=== PATIENT | female | born 1945 | race Native Hawaiian/Other Pacific Islander ===

== ENCOUNTER 2021-09-10 14:43 | Outpatient (CLI) | payer OTHER ==
[2021-09-10 15:07] LABS: PLATELET COUNT 476 K/uL (152-353)
[2021-09-10 15:14] LABS: POTASSIUM 4.1 mmol/L (3.6-5.2)
== END 2021-09-10 19:47 | disposition home or self-care (01) ==
LOC: LABW 14:43
PROVIDERS: ATTEND Podiatrist
DX: M10.072 Idiopathic gout, left ankle and foot (principal); E11.41 Type 2 diabetes mellitus with diabetic mononeuropathy
CPT/HCPCS: 36415; 80053; 83036; 84550; 85027; 86140

== ENCOUNTER 2021-09-26 09:39 | Outpatient (CLI) | payer OTHER | END 2021-09-26 23:01 | disposition home or self-care (01) | LOC: LABW 09:39 | PROVIDERS: ATTEND Nurse Practitioner Family | DX: R79.1 Abnormal coagulation profile (principal) | CPT/HCPCS: 36415; 85610 ==

== ENCOUNTER 2022-02-09 09:40 | Outpatient (CLI) | payer OTHER | END 2022-02-09 18:57 | disposition home or self-care (01) | LOC: RAD 09:40 | PROVIDERS: ATTEND Internal Medicine | DX: Z13.820 Encounter for screening for osteoporosis (principal); N95.8 Other specified menopausal and perimenopausal disorders; E11.9 Type 2 diabetes mellitus without complications ==

== ENCOUNTER 2022-05-07 15:16 | Emergency (ER) | payer OTHER ==
[~2022-05-07] VITALS: Ht 160 cm; Wt 98.0 kg
[2022-05-07 15:20] VITALS: TEMP 98
[2022-05-07 15:55] LABS: PLATELET COUNT 278 K/uL (152-353)
[2022-05-07 16:01] LABS: POTASSIUM 3.4 mmol/L (3.6-5.2)
[2022-05-07 16:16] LABS: PARTIAL THROMBOPLASTIN TIME 36.4 SECONDS (24.5-33.6)
[2022-05-07 17:35] VITALS: BP 156/78
== END 2022-05-07 18:10 | disposition home or self-care (01) ==
LOC: ED 15:16
PROVIDERS: Emergency Medicine
DX: I10 Essential (primary) hypertension (principal); I48.91 Unspecified atrial fibrillation; Z79.01 Long term (current) use of anticoagulants
CPT/HCPCS: 80053; 83880; 84484; 85027; 85379; 85610; 85730; 93005; 96374; 99284; J0360